=== PATIENT | male | born 1965 | race Caucasian/White ===

== ENCOUNTER 2016-04-17 08:59 | Outpatient (CLI) | payer BC, OTHER | END 2016-04-17 09:00 | disposition home or self-care (01) | DX: G47.30 Sleep apnea, unspecified (principal); G47.8 Other sleep disorders; G47.10 Hypersomnia, unspecified; R06.83 Snoring; R51 Headache ==

== ENCOUNTER 2016-06-14 08:43 | Outpatient (CLI) | payer BC, OTHER | END 2016-06-14 08:44 | disposition home or self-care (01) | DX: G47.33 Obstructive sleep apnea (adult) (pediatric) (principal) ==

== ENCOUNTER 2016-07-31 13:12 | Outpatient (CLI) | payer BC, OTHER | END 2016-07-31 13:13 | disposition home or self-care (01) | DX: G47.33 Obstructive sleep apnea (adult) (pediatric) (principal) ==

== ENCOUNTER 2016-09-19 15:26 | Outpatient (CLI) | payer BC, OTHER | END 2016-09-19 15:27 | disposition home or self-care (01) | LOC: SC 15:26 | PROVIDERS: ATTEND Specialist | DX: G47.33 Obstructive sleep apnea (adult) (pediatric) (principal) | CPT/HCPCS: 99212; 99213 ==

== ENCOUNTER 2018-12-18 12:40 | Day surgery (SDC) | payer BC, OTHER ==
[2018-12-18] MEDS ORDERED: MIDAZOLAM 2 MG/2 ML VIAL IVP ONE (12:41)
[2018-12-18] MEDS ORDERED: fentaNYL 250 MCG/5 ML VIAL IVP ONE (12:41)
[2018-12-18] MEDS ORDERED: LACTATED RINGERS 1,000 ML IV ONE (12:52)
[2018-12-18] MEDS ORDERED: LIDO GARGLE 30 ML BOTTLE PO ONE (14:18)
[2018-12-18] MEDS ORDERED: LIDO GARGLE 30 ML BOTTLE ONE (14:21)
[2018-12-18 15:32] VITALS: BP 141/97
== END 2018-12-18 12:41 | disposition home or self-care (01) ==
LOC: SDS 12:40
PROVIDERS: ATTEND Surgery
PROC: 0DBM8ZZ Excision of Descending Colon, Via Natural or Artificial Opening Endoscopic (ICD-10-PCS; 2018-12-18)
PROC: 0DBM8ZZ Excision of Descending Colon, Via Natural or Artificial Opening Endoscopic (ICD-10-PCS; 2018-12-18)
PROC: 0DBN8ZZ Excision of Sigmoid Colon, Via Natural or Artificial Opening Endoscopic (ICD-10-PCS; 2018-12-18)
PROC: 0DB58ZX Excision of Esophagus, Via Natural or Artificial Opening Endoscopic, Diagnostic (ICD-10-PCS; principal; 2018-12-18 14:00)
PROC: 0DBK8ZZ Excision of Ascending Colon, Via Natural or Artificial Opening Endoscopic (ICD-10-PCS; 2018-12-18 14:00)
DX: Z12.11 Encounter for screening for malignant neoplasm of colon (principal); D12.2 Benign neoplasm of ascending colon; D12.4 Benign neoplasm of descending colon; D12.5 Benign neoplasm of sigmoid colon; K57.30 Diverticulosis of large intestine without perforation or abscess without bleeding; K21.0 Gastro-esophageal reflux disease with esophagitis; G47.30 Sleep apnea, unspecified; R12 Heartburn; F17.210 Nicotine dependence, cigarettes, uncomplicated
CPT/HCPCS: 43239; 45380; 45385; A9270; J3010; J7120

== ENCOUNTER 2019-02-21 08:01 | Outpatient (CLI) | payer BC, OTHER ==
[2019-02-21 12:54] LABS: BASOPHILS # (AUTO) 0.1 10^3/uL (0.0-0.1); EOSINOPHILS # (AUTO) 0.2 10^3/uL (0.0-0.7); HGB - HEMOGLOBIN 14.7 g/dL (14.0-18.0); LYMPHOCYTES # (AUTO) 1.8 10^3/uL (1.5-3.5); LYMPHOCYTES % (AUTO) 22.5 %; MEAN CORPUSCULAR HEMOGLOBIN 30.4 pg (27.0-31.0); MEAN CORPUSCULAR HGB CONC 31.7 g/dL (32.0-36.0); MEAN CORPUSCULAR VOLUME 96.1 fL (80.0-94.0); MEAN PLATELET VOLUME 11.6 fL (7.4-11.4); MONOCYTES # (AUTO) 0.6 10^3/uL (0.0-1.0); MONOCYTES % (AUTO) 7.3 %; NEUTROPHILS # (AUTO) 5.4 10^3/uL (1.5-6.6); NEUTROPHILS % (AUTO) 65.7 %; PLT - PLATELET COUNT 286 10^3/uL (130-450); RED BLOOD COUNT 4.83 10^6/uL (4.70-6.10); RED CELL DISTRIBUTION WIDTH 13.6 % (12.0-15.0); WHITE BLOOD COUNT 8.1 x10^3/uL (4.8-10.8)
[2019-02-21 13:28] LABS: ALBUMIN 3.7 g/dL (3.2-5.5); ALBUMIN/GLOBULIN RATIO 1.1 (1.0-2.2); ALKALINE PHOSPHATASE 72 IU/L (42-121); ALT ALANINE AMINOTRANSFERASE 34 IU/L (10-60); AST ASPARTATE AMINOTRANSFERASE 30 IU/L (10-42); BILIRUBIN,TOTAL 0.6 mg/dL (0.2-1.0); BUN - BLOOD UREA NITROGEN 15 mg/dL (6-20); CALCIUM 9.6 mg/dL (8.5-10.3); CARBON DIOXIDE - CO2 27 mmol/L (21-32); CHLORIDE 104 mmol/L (101-111); CHOL/HDL RATIO 4.3 (<5.0); CHOLESTEROL 233 mg/dL; CREATININE 0.8 mg/dL (0.6-1.2); GFR - MDRD 102 (>89); GLUCOSE 119 mg/dL (70-100); HDL CHOLESTEROL 54 mg/dL; LDL CHOLESTEROL,CALCULATED 155 mg/dL; LDL/HDL RATIO 2.9 (<3.6); SODIUM 140 mmol/L (135-145); TOTAL PROTEIN 7.2 g/dL (6.7-8.2); VLDL CHOLESTEROL 24 mg/dL
== END 2019-02-21 23:59 | disposition home or self-care (01) ==
LOC: LAB.WCP 08:01
PROVIDERS: ATTEND Family Medicine
DX: Z00.00 Encounter for general adult medical examination without abnormal findings (principal); E78.5 Hyperlipidemia, unspecified
CPT/HCPCS: 36415; 80053; 80061; 83721; 85025

== ENCOUNTER 2020-04-20 07:35 | Outpatient (CLI) | payer BC, OTHER ==
[2020-04-20 13:19] LABS: BASOPHILS # (AUTO) 0.1 10^3/uL (0.0-0.1); BASOPHILS % (AUTO) 1.3 %; EOSINOPHILS # (AUTO) 0.3 10^3/uL (0.0-0.7); EOSINOPHILS % (AUTO) 3.7 %; HGB - HEMOGLOBIN 14.7 g/dL (14.0-18.0); LYMPHOCYTES # (AUTO) 2.2 10^3/uL (1.5-3.5); LYMPHOCYTES % (AUTO) 30.8 %; MEAN CORPUSCULAR HEMOGLOBIN 29.3 pg (27.0-31.0); MEAN CORPUSCULAR HGB CONC 31.8 g/dL (32.0-36.0); MEAN CORPUSCULAR VOLUME 92.2 fL (80.0-94.0); MONOCYTES # (AUTO) 0.6 10^3/uL (0.0-1.0); NEUTROPHILS # (AUTO) 3.9 10^3/uL (1.5-6.6); NEUTROPHILS % (AUTO) 55.1 %; PLT - PLATELET COUNT 255 10^3/uL (130-450); RED BLOOD COUNT 5.01 10^6/uL (4.70-6.10); RED CELL DISTRIBUTION WIDTH 14.7 % (12.0-15.0)
[2020-04-20 13:55] LABS: ALBUMIN 3.8 g/dL (3.2-5.5); ALKALINE PHOSPHATASE 69 IU/L (42-121); ALT ALANINE AMINOTRANSFERASE 30 IU/L (10-60); AST ASPARTATE AMINOTRANSFERASE 27 IU/L (10-42); BILIRUBIN,TOTAL 0.5 mg/dL (0.2-1.0); BUN - BLOOD UREA NITROGEN 14 mg/dL (6-20); CREATININE 0.9 mg/dL (0.6-1.2); TOTAL PROTEIN 7.3 g/dL (6.7-8.2)
[2020-04-20 13:56] LABS: BILIRUBIN,DIRECT < 0.1 mg/dL (0.1-0.5)
== END 2020-04-20 23:59 | disposition home or self-care (01) ==
LOC: LAB.WCP 07:35
PROVIDERS: ATTEND Podiatrist
DX: B35.1 Tinea unguium (principal); B35.3 Tinea pedis
CPT/HCPCS: 36415; 80076; 82565; 84520; 85025

== ENCOUNTER 2020-05-14 15:30 | Outpatient (CLI) | payer BC, OTHER ==
--- NOTE | 2020-05-17 10:13 | MRI Report ---
PROCEDURE: Ankle LT W/O INDICATIONS: LT FOOT/ANKLE INJURY TECHNIQUE: Noncontrast sagittal T1 spin echo and T2 fast spin echo with fat saturation, axial proton density fas t spin echo and T2 fast spin echo with fat saturation, coronal T1 spin echo and T2 fast spin echo wit h fat saturation through the ankle/hindfoot. COMPARISON: None. FINDINGS: Image quality: Excellent. Bones and joints: There is marrow edema involving third metatarsal base and proximal shaft. Nondispla jeremias and subacute appearing fracture involving third metatarsal base is seen. Mild edema involving fou rth metatarsal base is seen without discrete fracture line. Mild osteoarthritic changes are noted in midfoot joints more prominent at second through fourth TMT joints. No hindfoot coalitions. No osteoc hondral injuries of the talar dome. No pathologic joint effusions. Well-defined plantar calcaneal e nthesophyte is noted. Medial structures: Mild soft tissue edema involving posterior and medial aspect of ankle joint is se en. The posterior tibialis, flexor digitorum longus, and flexor hallucis longus tendons are intact. The posterior tibial neurovascular bundle appears normal within the tarsal tunnel, without extrinsic mass effect. The deep layer (anterior and posterior tibiotalar ligaments) and superficial layer (tib ionavicular, tibiospring, and tibiocalcaneal ligaments) of the deltoid ligament appear normal. The s pring ligament components (superomedial calcaneonavicular, medioplantar oblique calcaneonavicular, an d inferoplantar longitudinal ligaments) are intact. Lateral structures: The anterior talofibular, calcaneofibular, and posterior talofibular ligaments a ppear intact. More superiorly, the anterior and posterior tibiofibular ligaments appear normal, as i s the intermalleolar ligament. The tibiofibular syndesmosis is normal in width at 2 mm or less. The peroneus longus and brevis tendons demonstrate normal location and morphology. Adjacent bony perone al tubercle and retrotrochlear prominence are normal in size. The sinus tarsi demonstrates normal fa tty signal, without edema, fibrosis, or cyst formation. Visualized sinus tarsi components (cervical ligament, interosseous talocalcaneal ligament, roots of the inferior extensor retinaculum) appear nor mal. Anterior structures: The tibialis anterior, extensor hallucis longus, and extensor digitorum longus tendons appear intact. Posterior and plantar structures: Achilles tendon is intact. Thickened the medial band of plantar fa scia at its insertion on plantar calcaneus is seen. No abductor digiti quinti muscle atrophy to sugge st [place] neuropathy. IMPRESSION: 1. Subacute appearing nondisplaced fracture through third metatarsal base with surrounding edema. Mil d edema involving fourth metatarsal base without fracture line likely represent stress related change s. Mild midfoot joint osteoarthritis. 2. Ankle tendons and ligaments are grossly intact. 3. Mild soft tissue edema involving posterior medial aspect of ankle joint. 4. Thickened medial band of plantar fascia at its plantar calcaneal insertion concerning for plantar fasciitis. Reviewed by: Clay Mitchell MD on 05/17/2020 10:11 AM PST Approved by: Clay Mitchell MD on 05/17/2020 10:11 AM PST Station ID: [id number]
== END 2020-05-14 15:31 | disposition home or self-care (01) ==
LOC: DI 15:30
PROVIDERS: ATTEND Podiatrist
DX: S92.335A Nondisplaced fracture of third metatarsal bone, left foot, initial encounter for closed fracture (principal); M19.072 Primary osteoarthritis, left ankle and foot; R60.0 Localized edema; R93.6 Abnormal findings on diagnostic imaging of limbs

== ENCOUNTER 2020-07-06 08:00 | Outpatient (CLI) | payer BC, OTHER ==
[2020-07-06 12:57] LABS: BILIRUBIN,URINE NEGATIVE (NEGATIVE); GLUCOSE, URINE (UA) NEGATIVE (NEGATIVE); KETONES,URINE (UA) NEGATIVE (NEGATIVE); LEUKOCYTE ESTERASE, URINE NEGATIVE (NEGATIVE); NITRITE,URINE NEGATIVE (NEGATIVE); OCCULT BLOOD,URINE NEGATIVE (NEGATIVE); PROTEIN,URINE NEGATIVE (NEGATIVE); UROBILINOGEN,URINE 0.2 (NORMAL) E.U./dL (NORMAL)
[2020-07-06 13:00] LABS: BASOPHILS # (AUTO) 0.1 10^3/uL (0.0-0.1); BASOPHILS % (AUTO) 1.3 %; CLARITY,URINE CLEAR (CLEAR); EOSINOPHILS # (AUTO) 0.3 10^3/uL (0.0-0.7); EOSINOPHILS % (AUTO) 4.4 %; HCT - HEMATOCRIT 47.3 % (42.0-52.0); HGB - HEMOGLOBIN 15.1 g/dL (14.0-18.0); LYMPHOCYTES % (AUTO) 29.1 %; MEAN CORPUSCULAR HGB CONC 31.9 g/dL (32.0-36.0); MEAN PLATELET VOLUME 12.5 fL (7.4-11.4); MONOCYTES # (AUTO) 0.7 10^3/uL (0.0-1.0); MONOCYTES % (AUTO) 10.2 %; NEUTROPHILS # (AUTO) 3.7 10^3/uL (1.5-6.6); NEUTROPHILS % (AUTO) 54.6 %; PLT - PLATELET COUNT 221 10^3/uL (130-450); RED BLOOD COUNT 5.03 10^6/uL (4.70-6.10); RED CELL DISTRIBUTION WIDTH 14.7 % (12.0-15.0); WHITE BLOOD COUNT 6.8 x10^3/uL (4.8-10.8)
[2020-07-06 13:05] LABS: ALBUMIN 3.6 g/dL (3.2-5.5); BILIRUBIN,TOTAL 0.5 mg/dL (0.2-1.0); CALCIUM 8.8 mg/dL (8.5-10.3); CREATININE 0.8 mg/dL (0.6-1.2); TOTAL PROTEIN 7.1 g/dL (6.7-8.2)
[2020-07-06 13:06] LABS: BACTERIA,URINE None Seen /HPF (None Seen); MUCUS,URINE Few Strands; RBC,URINE 0-5 /HPF (0-5); SQUAMOUS EPITHELIAL CELL,UR FEW Squamous (<= Few); WBC,URINE 0-3 /HPF (0-3)
[2020-07-06 13:22] LABS: THYROID STIMULATING HORMONE 2.24 uIU/mL (0.34-5.60)
== END 2020-07-06 23:59 | disposition home or self-care (01) ==
LOC: LAB.WCP 08:00
PROVIDERS: ATTEND Family Medicine
DX: K52.9 Noninfective gastroenteritis and colitis, unspecified (principal); N41.1 Chronic prostatitis
CPT/HCPCS: 36415; 80053; 81001; 84153; 84443; 85025; 85651; 87086

== ENCOUNTER 2020-07-08 11:04 | Outpatient (CLI) | payer BC, OTHER ==
--- NOTE | 2020-07-08 16:20 | XRAY Report ---
PROCEDURE: Abdomen 2 View X-Ray INDICATIONS: COLITIS,ACUTE TECHNIQUE: 2 views of the abdomen were acquired. COMPARISON: None FINDINGS: Surgical changes and devices: None. Bowel: No pneumoperitoneum. The bowel gas pattern is normal. Soft tissues: No masses; visualized solid organ contours appear normal in size. No suspicious abdom inal calcifications. Bones: No suspicious bony abnormalities. IMPRESSION: No free air. No obstruction. Reviewed by: Litzy Cross MD on 07/08/2020 4:19 PM PDT Approved by: Litzy Cross MD on 07/08/2020 4:19 PM PDT Station ID: [id number]
== END 2020-07-08 11:05 | disposition home or self-care (01) ==
LOC: DI 11:04
PROVIDERS: ATTEND Family Medicine
DX: K52.9 Noninfective gastroenteritis and colitis, unspecified (principal)

== ENCOUNTER 2020-12-20 09:52 | Outpatient (CLI) | payer BC, OTHER ==
--- NOTE | 2020-12-20 10:47 | SLEEP CARE CONSULTATION ---
Information from patient questionnaire entered by Yuridia Martinez. I have reviewed and concur with the information entered by Yuridia Martinez. This document represents the service I personally performed and the decisions made by me, Colten Cullen MD, [facility]. History of Present Illness Service Date and Time: 12/20/2020 0952 Reason for Visit: New patient, Previously diagnosed sleep apnea (moderate - AHI - 17), sleep apnea on CPAP therapy (not using CPAP), Re-establish care (last se en 09/2016) Chief Complaint: reports: Snoring, Excessive daytime sleepiness, Observed pauses in breathing, Fatigue, Frequent awakenings at night Date of Onset: years Usual bedtime: varies, shift work Time it takes to fall asleep: 20 - 30 minutes Snores at night: Yes Observed to quit breathing while asleep: Yes Sleeps alone due to snoring: No Number of times waking at night: 3-5 Reasons for waking at night: reports: Choking, Gasping for air, Bathroom Toss, Turn, or Twitch while sleeping: Yes Recalls having dreams: Yes Usually gets out of bed at: varies, shift work Feels refreshed in the morning: No Morning headache: Yes (not always, resolves in a couple hours) Sleepy or fatigued during the day: Yes Ever fallen asleep while driving: Yes Takes day naps: Yes Dreams during day naps: Yes Prior sleep studies: Yes Year and Where: 2016 - [facility] Type of Sleep Study: Home sleep study Additional HPI information: Mr. Desai was diagnosed to have moderate obstructive sleep apnea-hypopnea syndrome and returns today for follow up of CPAP therapy after last seen in 2016. The patient purchased the device from [facility] [employer] and was fitted with a nasal mask. He used the device nightly and all through the night for about 2 years. He said he quit because he got . His CPAP was set at 6 - 15 cmH2 O is comfortable. He wore a full face mask because he is a mouth breather. On the CPAP therapy he notices slight improvement in his sleep quality, and that he wakes up feeling fresher in the morning and more awake/alert during the day. His girlfriend notices pauses in his breathing when not using CPAP. [place] Sleepiness Scale score is 19. He would like to go back and use his CPAP. 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 Patient is Single and lives in [place]. Have you smoked in the past 12 months: Yes Cigarettes per day (20/pack): 20 Alcohol use: Yes Alcohol amount and frequency: 2-3 drinks a week Caffeine use: Yes Caffeine amount and frequency: 2-3 cups a day Family History Family history of sleep disordered breathing: Yes Family Hx Sleep Apnea: Father: Sleep apnea - Treated, Sibling: Sleep apnea - Treated Allergies and Home Medications Drug allergies reviewed: Yes Home medication list reviewed: Yes Review of Systems Weight gain over past 5 years: 85 Cardiovascular: reports: high blood pressure Respiratory: denies: shortness of breath, wheeze, sputum production, chronic cough, other Gastrointestinal: reports: heartburn Urinary: reports: frequency Ear/Nose/Throat: reports: sinus problems, dry mouth/throat Endocrine: denies: thyroid disease, history of goiter, sluggishness, too hot or cold, excessive thirst, increased appetite, increased urination, unexplained weakness, other Musculoskeletal: reports: joint pain, back pain Immunologic: reports: sneezing, allergies to food or environment Physical Exam Vital signs obtained and entered by: To minimize the risk of COVID-19 exposure, detailed exam was not performed. Height: 6 ft 2 in Weight: 340 lb Weight change since last visit: +100 Body Mass Index: 43.6 BMI Classification: Morbidly Obese Impression and Plan IMPRESSION: 1. Obstructive Sleep Apnea-Hypopnea Syndrome, moderate, probably severe now given the 100-lb weight gain. His Respironics DreamStation is also recalled. Therefore, I will order him a ResMed AirSense and set it between 6 and 12 cmH2O. PLAN: 1. Prescription made for an autoCPAP, heated humidifier, and related supplies. 2. Try to lose weight 3. Return for follow up after one month of using the CPAP. Counseling Topics: Weight control Prescriptions: Auto CPAP Follow up with Sleep Care in: 1-2 months Visit Type: In Office Provider Statement: I spent 100% of the Face to Face Visit with the patient with greater than 50% spent counseling the patient and coordination of care.
== END 2020-12-20 09:53 | disposition home or self-care (01) ==
LOC: SC 09:52
PROVIDERS: ATTEND Internal Medicine Pulmonary Disease
DX: G47.33 Obstructive sleep apnea (adult) (pediatric) (principal); E66.01 Morbid (severe) obesity due to excess calories; Z68.41 Body mass index [BMI] 40.0-44.9, adult
CPT/HCPCS: 99202; 99212

== ENCOUNTER 2021-07-14 10:52 | Outpatient (CLI) | payer BC, OTHER ==
[2021-07-14 11:28] VITALS: BP 127/72
--- NOTE | 2021-07-14 11:28 | SLEEP CARE CONSULTATION ---
Information from patient questionnaire entered by Preston Stahl MA. I have reviewed and concur with the information entered by Preston Stahl MA. This document represents the service I personally performed and the decisions made by , Nancy Lux ARNP. History of Present Illness Service Date and Time: 07/14/2021 1052 Previous diagnosis: Moderate, Obstructive Sleep Apnea-Hypopnea Syndrome AHI: 17.4 (in 2017) Reason for follow up: six month (DUE FOR NEW MACHINE, ZACHARY, ) Equipment type: CPAP Equipment obtained from: [employer] (getting his supplies from [employer] when he runs low) Mask style: Full face Backup mask available: No (will keep old mask when replaced) Last cushion change: months Prior sleep studies: Yes Year and Where: 2016 - [facility] Type of Sleep Study: Home sleep study HPI additional information: ROMAINE THOMAS was diagnosed to have moderate, AHI 17.4, obstructive sleep apnea- hypopnea syndrome and returned today for CPAP therapy 6 month follow-up. Sleep Study - Results Type of Sleep Study: Home sleep study Prior sleep studies: Yes Year and Where: 2016 - [facility] [employer] CPAP Compliance Data - Data Reviewed with Patient Average duration of nightly device use: 6 HOURS 44 MINUTES Compliance rate %: 86.1 Current pressure setting (cmH2O): 8-15 Humidity settin Heated hose settin Average residual AHI: 10.2 Average large leak: 4 HOURS 14 MINUTES Subjective Missed days of use due to: reports: other (work travel) Patient concerns: reports: air blowing in eyes, dry mouth, nose, throat. denies: aerophagia, mask discomfort, mask leak noise, condensation in mask/hose, nasal congestion, epistaxis, other Current pressure setting perceived as: comfortable On therapy, patient: reports: sleeping better, awakening more refreshed, being more awake and alert during the day, more rested overall. denies: drowsiness while driving Initial [place] Sleepiness Scale score: 14 (in 2017) Current [place] Sleepiness Scale score: 10 Allergies and Home Medications Home medication list reviewed: Yes (no changes) Allergy and home medication list: Allergies No Known Drug Allergies Allergy (Verified 12/17/18 14:11) Review of Systems Review of systems same as previous: Yes (no changes) Physical Exam Vital signs obtained and entered by: Karlee STAHL CMA AAMA Blood Pressure: 127/72 Cuff size: wrist Heart Rate: 80 O2 Saturation: 99 (paper mask) Height: 6 ft 2 in Weight: 320 lb Weight change since last visit: 20 lb loss Body Mass Index: 41.1 BMI Classification: Morbidly Obese Impression and Plan 1. Obstructive Sleep Apnea-Hypopnea Syndrome, moderate, with good treatment compliance and fair apnea control with elevated residual AHI. On CPAP therapy, the patient has better sleep quality and is more rested overall. The patients pressure will be changed to autoCPAP 10-16 cmH20 for elevation of residual AHI. Patient advised to contact me if pressure change is uncomfortable so that it can be adjusted. Goals for apnea control discussed. Patient has had some mask leaks and oral dryness. He has not been changing his mask regularly, his last change was months ago. Mask leaks can be reduced by washing mask daily and changing mask cushions more frequently to improve mask seal and comfort. Oral dryness can be reduced by adjusting humidity setting higher or heated hose lower or by adjusting both settings. Oral dryness can also be reduced by reducing mask leaks. Patient has a Dreamstation that was last updated 06/2016. Patient has already registered their device for the recall. Patient denies any black particles seen in machine or hoses, any unusual odors coming from device. Patient has not experienced any physical symptoms such as upper airway irri tation, headache, skin or eye irritation, asthma, nausea/vomiting, difficulty breathing or chest pain. If patient is not able to sleep due to waking up choking, gasping for air or other respiratory distress that they may decide to continue using it until it is either replaced or repaired. Since the patients current machine is at least 5 years old, the patient is opting to update their device with a device that is not on the recall. Thus, the CPAP will be updated. A DWO prescription will be made. Compliance guidelines for new device and follow up discussed. Patient voiced understanding and agreement with plan. Patient's apnea severity and rationale for treatment to reduce apnea, improve sleep quality and reduce cardiovascular and cerebrovascular events was reviewed. I also reviewed the benefit of consistent device use of CPAP for hypertension and gastric reflux. 2. Obesity, unspecified. Patient has lost weight. Currently patients BMI is 41.1. Obesity increases the risk of apnea, CPAP pressure requirements and overall health risks especially cardiovascular and diabetes. Thus patient is advised to lose weight. Weight loss can be done with reducing portion size, reducing refined foods and balancing content with vegetables, fruit and whole grain foods. In addition, patient encouraged to get regular exercise. The patient's CPAP pressure range should accommodate some weight loss. Symptoms to report for additional pressure adjustment discussed. * Change auto CPAP pressure to 10-16 cmH2O * Update device * Update supplies as needed * Notify me if snoring with mask or feeling that the pressure is too much or too little * Attempt to lose weight * Call this office if any problems using CPAP * Return for follow up one month after obtaining new device, or sooner if concerns arise Counseling Topics: Spare mask, Weight loss health impact Visit Type: In Office Time Spent with Patient (minutes): 22 Provider Statement: I spent 100% of the Face to Face Visit with the patient with greater than 50% spent counseling the patient and coordination of care.
== END 2021-07-14 10:53 | disposition home or self-care (01) ==
LOC: SC 10:52
PROVIDERS: ATTEND Nurse Practitioner Family
DX: G47.33 Obstructive sleep apnea (adult) (pediatric) (principal); E66.01 Morbid (severe) obesity due to excess calories; Z68.41 Body mass index [BMI] 40.0-44.9, adult
CPT/HCPCS: 99212; 99213

== ENCOUNTER 2022-06-29 09:42 | Outpatient (CLI) | payer BC, OTHER ==
--- NOTE | 2022-06-29 12:31 | XRAY Report ---
PROCEDURE: Chest 2 View X-Ray INDICATIONS: FLANK PAIN TECHNIQUE: 2 views of the chest were acquired. COMPARISON: Chest x-ray, 03/21/2016. FINDINGS: Surgical changes and devices: None. Lungs and pleura: Question bilateral pleural thickening. Increased pulmonary interstitial markings. No focal consolidation. No pleural effusions or pneumothorax. . Mediastinum: Mediastinal contours are normal. Heart size is normal. Bones and chest wall: No suspicious bony abnormalities. Soft tissues appear unremarkable. IMPRESSION: 1. No acute cardiopulmonary disease. 2. Question bilateral pleural thickening. No pleural effusions. 3. Prominent pulmonary interstitium. Reviewed by: Luz Timmons MD on 06/29/2022 12:30 PM PDT Approved by: Luz Timmons MD on 06/29/2022 12:30 PM PDT Station ID: [id number]
--- NOTE | 2022-06-29 17:38 | XRAY Report ---
PROCEDURE: Thoracic Spine 3 View INDICATIONS: BACK PAIN TECHNIQUE: 3 views of the thoracic spine were acquired. COMPARISON: X-ray thoracic spine, 09/09/2015. FINDINGS: Bones: No fractures or dislocations. No suspicious bony lesions. Moderate degenerative disc disease . Prominent lateral osteophytes bilaterally. 12 pairs of ribs are noted, and appear intact where visu alized. Soft tissues: No paravertebral stripe thickening. IMPRESSION: 1. Moderate degenerative disc disease. 2. Large lateral osteophytes suggesting DISH. Reviewed by: Luz Timmons MD on 06/29/2022 5:37 PM PDT Approved by: Luz Timmons MD on 06/29/2022 5:37 PM PDT Station ID: [id number]
== END 2022-06-29 09:43 | disposition home or self-care (01) ==
LOC: DI 09:42
PROVIDERS: ATTEND Physician Assistant
DX: M51.34 Other intervertebral disc degeneration, thoracic region (principal); R10.9 Unspecified abdominal pain

== ENCOUNTER 2022-07-13 12:07 | Outpatient (CLI) | payer BC, OTHER ==
--- NOTE | 2022-07-14 07:07 | CT Report ---
PROCEDURE: Low Dose Lung Cancer Screen INDICATIONS: HIST OF TOBACCO USE TECHNIQUE: Noncontrast low-dose axial images were acquired from the pulmonary apices to the posterior costophren ic angles. Multiplanar MIP reformats were then reconstructed. For radiation dose reduction, the follo wing was used: automated exposure control, adjustment of mA and/or kV according to patient size. COMPARISON: None. FINDINGS: Image quality: Good, allowing for low radiation dose Lungs and pleura:No airspace consolidation or pleural effusions. Mild scattered scarring and atelecta sis. Pulmonary micronodule in the right . Fissural small nodule in the right . Mediastinum, heart, and esophagus: No hiatal hernia. Normal heart size. No pathologic adenopathy by s ize criteria. Chest wall and thyroid: Unremarkable Upper abdomen: No gross abnormality on these limited low-dose noncontrast images. Questionable adrena l thickening versus nodule. Bones: Possible slight rib deformities may not be acute. No acute or suspicious abnormality identifie d. IMPRESSION: Lung RADS 2: Continue annual screening. Possible adrenal thickening versus small nodules, difficult to evaluate given low-dose technique. Con service agent nonurgent adrenal protocol to further evaluate if desired. Reviewed by: Hair Baker MD on 07/13/2022 2:55 PM PDT Approved by: Hair Baker MD on 07/13/2022 2:55 PM PDT Station ID: [id number]
== END 2022-07-13 12:08 | disposition home or self-care (01) ==
LOC: DI 12:07
PROVIDERS: ATTEND Physician Assistant
DX: Z12.2 Encounter for screening for malignant neoplasm of respiratory organs (principal); Z87.891 Personal history of nicotine dependence